=== PATIENT | male | born 1975 | race Caucasian/White ===

== ENCOUNTER → 2023-02-27 14:32 | Outpatient (BNVA) | payer SELFPAY | PROVIDERS: Family Provider Family Medicine; Visit Provider Registered Nurse Neonatal Intensive Care | DX: R39.9 Unspecified symptoms and signs involving the genitourinary system (principal); R73.9 Hyperglycemia, unspecified; H53.9 Unspecified visual disturbance | CPT/HCPCS: 80053; 81000; 82962; 83036; 85007; 85027 ==

== ENCOUNTER 2023-03-07 22:44 | Emergency (ER) | payer SELFPAY ==
[2023-03-07 22:49] VITALS: BP 167/113; PULSE 102; RESP 16; TEMP 36.8; O2SAT 97; BMI 36.2
[2023-03-07 22:54] VITALS: BP 104/58; PULSE 101; RESP 20; O2SAT 93
[2023-03-07 23:02] LABS: Glucose Point of Care 497 mg/dL (70-110)
--- NOTE | 2023-03-07 23:06 | ED_ITS ---
HPI - General Adult General: Chief complaint: General Medical Stated complaint: Cant Sleep\Peeing\No Solid Food\Lossing weight\ Time Seen by Provider: 03/07/23 22:48 Source: patient Mode of arrival: ambulatory Limitations: no limitations History of Present Illness: 47-year-old male states he was diagnosed as a diabetic this week he states that his blood sugar was extremely high at the office visit he started metformin and glipizide he states that since then he just has not felt right he states he has been urinating a lot been extremely thirsty having a hard time sleeping. He states he feels like he is fatigued as well. Denies any pain anywhere denies any vomiting or diarrhea denies any fever or cough. Associated symptoms: Reports nausea; Deny chest pain, dyspnea, headache(s), rash or vomiting Review of Systems Const: Denies: fever(s) or chills Eyes: Denies: blurry vision or eye discomfort ENMT: Denies: throat pain or dental pain Card: Denies: chest pain Resp: Denies: dyspnea GI: Reports: nausea; Denies: abdominal pain, vomiting or diarrhea : Reports: urinary frequency; Denies: dysuria Musc: Denies: neck pain or back pain Skin/Breast: Denies: rash Neuro: Denies: headache(s) Psych: Denies: depression Samir/Lymph: Denies: easy bruising All/Imm: Denies: urticaria PFSH ED PFSH: Medical History Depression Family History (Updated 03/04/23 @ 14:51 by Serena Rivera LPN) Grandmother No problems noted. 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 Special tammy needs: No Agree to transfusion: Yes Physical Exam Const: COMMON NORMALS: no acute distress, patient oriented x3 and healthy appearing HENMT: COMMON NORMALS: normocephalic and atraumatic HEAD & SCALP: normocephalic and atraumatic Eye: COMMON NORMALS: Equal, round and reactive pupils present and EOMs intact bilaterally PUPIL: Yes Equal, round and reactive pupils present Neck/C-Spine: COMMON NORMALS: full ROM and supple Chest: COMMONS NORMALS: normal inspection of the chest and normal palpation of entire chest wall Resp: COMMON NORMALS: normal respiratory effort, No retractions, No use of accessory muscles and clear to auscultation bilaterally AUSCULTATION: clear to auscultation bilaterally Cardio: COMMON NORMALS: regular rate, regular rhythm and No murmurs present (Cardio) RATE: regular rate RHYTHM: regular rhythm GI: COMMON NORMALS: Normal to inspection, nondistended, normoactive bowel sounds present, Soft to palpation, non-tender and no masses PALPATION: Yes Soft to palpation Extremity: COMMON NORMALS: normal to inspection and full ROM Neuro: COMMON NORMALS: patient oriented x3, moves all extremities and no focal motor deficits Psych: COMMON NORMALS: mental status grossly normal, Normal thought process present and cooperative THOUGHT PROCESS: Normal thought process present Skin: COMMON NORMALS: no rashes or lesions noted and no wounds GENERAL SKIN EXAM: no rashes or lesions noted Course Vital Signs: Vital signs: Vital Signs Temperature 98.2 F 03/07/23 22:49 Pulse Rate 86 03/08/23 00:24 Respiratory Rate 18 03/08/23 01:30 Blood Pressure 168/93 03/08/23 01:30 Pulse Oximetry 94 03/08/23 01:30 Oxygen Delivery Me thod Room Air 03/07/23 22:49 MDM - General Adult Medical Decision Making Patient presents here with hyperglycemia likely causing his symptoms he is not in DKA blood work here is normal he feels improved after fluids and insulin his blood sugar now is 325 I feel he is stable for discharge he is to continue his meds follow-up with his PCP and 3 to 5 days and return if worsening he understands agrees to plan. Medical Records I reviewed the patient's medical records. Lab Data I reviewed the patient's lab results. 03/07/23 23:01 03/08/23 01:15 Laboratory Results WBC 12.3 10^3/uL (4.0-10.0) H 03/07/23 23:01 RBC 6.66 10^6/uL (4.1-5.3) H 03/07/23 23:01 Hgb 19.3 g/dL (11.7-16.6) H 03/07/23 23:01 Hct 56.6 % (42.0-52.0) H 03/07/23 23:01 MCV 85.0 fl (80-94) 03/07/23 23: MCH 29.0 pg (28.0-34.0) 03/07/23 23: MCHC 34.1 g/dL (30.0-36.0) 03/07/23 23: RDW 12.7 % (12.1-15.1) 03/07/23 23: Plt Count 213 10^3/cmm (130-400) 03/07/23 23: MPV 11.7 fL (7.4-10.4) H 03/07/23 23:01 Neut % (Auto) 69.1 % 03/07/23 23: Lymph % (Auto) 22.9 % 03/07/23 23: [place] % (Auto) 6.7 % 03/07/23 23: Eos % (Auto) 0.4 % 03/07/23 23: Baso % (Auto) 0.4 % 03/07/23 23: Neut # (Auto) 8.48 10^3/uL (1.8-7.7) H 03/07/23 23:01 Lymph # (Auto) 2.8 10^3/uL (0.8-4.8) 03/07/23 23: [place] # (Auto) 0.8 10^3/uL (0.2-0.9) 03/07/23 23:01 Eos # (Auto) 0.1 10^3/uL (0.0-0.8) 03/07/23 23: Baso # (Auto) 0.1 10^3/uL (0.0-0.1) 03/07/23 23: Nucleated RBC % (auto) 0 % 03/07/23 23: Nucleated RBCs # 0.0 /100WBC 03/07/23 23: Specimen Type Arterial 03/08/23 00:20 Sample Site Radial, left 03/08/23 00:20 ABG pH 7.45 (7.35-7.45) 03/08/23 00:20 ABG pCO2 33.8 mmHg (35-45) L 03/08/23 00:20 ABG pO2 68.6 mmHg (80.0-100.0) L 03/08/23 00:20 ABG HCO3 23.5 mmol/L (22-26) 03/08/23 00:20 ABG Base Excess 0.3 mmol/L (-2.0-2.0) 03/08/23 00:20 Venu Test Pos 03/08/23 00:20 Hematocrit 55.8 % (42-52) H 03/08/23 00:20 O2 Delivery Device None 03/08/23 00:20 Insurance Administrative Assistant ID [email or web address] 03/08/23 00:20 Sodium 133 mmol/L (136-145) L 03/08/23 01:15 Potassium 3.3 mmol/L (3.5-5.1) L 03/08/23 01:15 Chloride 96 mmol/L (98-107) L 03/08/23 01:15 Carbon Dioxide 21 mmol/L (22-29) L 03/08/23 01:15 Anion Gap 19.3 (5-19) H 03/08/23 01:15 BUN 11 mg/dL (6-20) 03/08/23 01:15 Creatinine 0.9 mg/dL (0.7-1.2) 03/08/23 01:15 GFR Calculation 91.3 mL/min (90-130) 03/08/23 01:15 Glucose 402 mg/dL (65-115) H 03/08/23 01:15 POC Glucose 404 mg/dL (70-110) H 03/08/23 01:04 Calculated Osmolality 292 mOsm/kg (285-295) 03/08/23 01:15 Calcium 8.5 mg/dL (8.5-10.5) 03/08/23 01:15 Total Bilirubin 1.2 mg/dL (0.15-1.2) 03/07/23 23:01 AST 39 U/L (0-40) 03/07/23 23:01 ALT 67 U/L (0-41) H 03/07/23 23:01 Alkaline Phosphatase 238 U/L (40-130) H 03/07/23 23:01 Total Protein 8.9 g/dL (6.6-8.7) H 03/07/23 23: Albumin 4.4 g/dL (3.5-5.2) 03/07/23 23: Globulin 4.5 g/dL (1.3-4.6) 03/07/23 23:01 Lipase 40 U/L (13-60) 03/07/23 23:01 Urine Color Yellow (Yellow) 03/08/23 00:31 Urine Appearance Sl hazy (CLEAR) A 03/08/23 00:31 Urine pH 5 (5-7) 03/08/23 00:31 Ur Specific [place] 1.015 (1.005-1.030) 03/08/23 00:31 Urine Protein Neg (Negative) 03/08/23 00:31 Urine Glucose (UA) 4+ (Normal) H 03/08/23 00:31 Urine Ketones 2+ (Negative) H 03/08/23 00:31 Urine Blood Neg (Negative) 03/08/23 00: Urine Nitrate Negative (Negative) 03/08/23 00:31 Urine Bilirubin Neg (Negative) 03/08/23 00:31 Urine Urobilinogen Neg mg/dL (Negative) 03/08/23 00:31 Ur Leukocyte Esterase Trace (Negative) H 03/08/23 00:31 Urine RBC None /hpf (0-2) 03/08/23 00:31 Urine WBC 0-4 /hpf (0-5) H 03/08/23 00:31 Ur Squamous Epith Cells 0-4 /hpf (0-5) H 03/08/23 00:31 Amorphous Sediment Not Reportable 03/08/23 00:31 Urine Bacteria 1+ /hpf (NONE) H 03/08/23 00:31 Urine Mucus 1+ /hpf 03/08/23 00:31 Urine Yeast 2+ /hpf H 03/08/23 00:31 EKG Data EKG 1: I personally reviewed and interpreted this EKG as follows: EKG interpretation date: 03/07/23 EKG interpretation time: 23:28 Interpretation: nsr hr [address] or t wave abonramlities qrs 114 qtc 432 Discharge Plan Discharge Patient Disposition: Home Clinical Impression: Hyperglycemia Condition: Stable Prescriptions: New ondansetron 4 mg tablet,disintegrating 4 mg PO Q6H PRN (Reason: nausea and vomiting) Qty: 14 0RF No Action nystatin 100,000 unit/gram cream 1 applic topical TID 7 Days Qty: 30 0RF metformin 500 mg tablet extended release 24hr 500 mg PO BID Qty: 60 0RF glipizide 5 mg tablet 5 mg PO DAILY Qty: 30 0RF fluoxetine 20 mg tablet 20 mg PO DAILY Qty: 30 0RF Discharge Orders: Discharge ED (Routine); Ordered 03/08/23 Ordered By: Gi Castellon Referrals: Viktor Samaniego MD [Primary Care Provider] - 1-3 days Discharge Diet: Advance as tolerated Discharge Activity: Resume usual activity Patient Instructions: Diabetic Hyperglycemia (ED) Stand Alone Forms: Work/School Release Coding Level of Care Code ED Babbitt Spinner for Meliton Lopez
--- NOTE | 2023-03-07 23:08 | ECG_ITS ---
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 Measurements Intervals Pray Rate: 96 P: 30 SD: 148 QRS: -18 QRSD: 114 T: 18 QT: 378 QTc: 480 Interpretive Statements SINUS RHYTHM MODERATE INTRAVENTRICULAR CONDUCTION DELAY [110+ ms QRS DURATION] NONSPECIFIC ST & T-WAVE ABNORMALITY No previous ECG available for comparison Electronically Signed On 03-08-2023 11:58:04 CDT by Myles Ponce M.D. [id number]
[2023-03-07] MEDS: insulin regular-human 100 units/1 mL 10 UNIT IVP (23:09)
[2023-03-07 23:10] LABS: Basophils # 0.1 10^3/uL (0.0-0.1); Basophils % 0.4 %; Eosinophils # 0.1 10^3/uL (0.0-0.8); Eosinophils % 0.4 %; Hematocrit 56.6 % (42.0-52.0); Hemoglobin 19.3 g/dL (11.7-16.6); Lymphocytes # 2.8 10^3/uL (0.8-4.8); Lymphocytes % 22.9 %; Mean Corpuscular HGB Conc 34.1 g/dL (30.0-36.0); Mean Platelet Volume 11.7 fL (7.4-10.4); Monocytes # 0.8 10^3/uL (0.2-0.9); Monocytes % 6.7 %; Neutrophils # 8.48 10^3/uL (1.8-7.7); Neutrophils % 69.1 %; Nucleated Red Blood Cells % 0 %; Platelet Count 213 10^3/cmm (130-400); Red Blood Count 6.66 10^6/uL (4.1-5.3); Red Cell Distribution Width 12.7 % (12.1-15.1); White Blood Count 12.3 10^3/uL (4.0-10.0)
[2023-03-07] MEDS: sodium chloride 0.9% 1,000 ML 999 ML IV (23:10)
[2023-03-07 23:28] LABS: Alanine Aminotransferase 67 U/L (0-41); Albumin Level 4.4 g/dL (3.5-5.2); Alkaline Phosphatase 238 U/L (40-130); Anion Gap 22.7 (5-19); Aspartate Amino Transferase 39 U/L (0-40); Blood Urea Nitrogen 13 mg/dL (6-20); Calcium 9.3 mg/dL (8.5-10.5); Carbon Dioxide 24 mmol/L (22-29); Chloride 92 mmol/L (98-107); Globulin 4.5 g/dL (1.3-4.6); Glomerular Filtration Rate 72.4 mL/min (90-130); Lipase 40 U/L (13-60); Osmolality Calculated 303 mOsm/kg (285-295); Potassium 3.7 mmol/L (3.5-5.1); Sodium 135 mmol/L (136-145); Total Bilirubin 1.2 mg/dL (0.15-1.2); Total Protein 8.9 g/dL (6.6-8.7)
[2023-03-07 23:31] LABS: Glucose 518 mg/dL (65-115)
[2023-03-08 00:24] VITALS: BP 178/105; PULSE 86; RESP 16; O2SAT 93
[2023-03-08] MEDS: insulin regular-human 100 units/1 mL 10 UNIT IVP (00:24)
[2023-03-08 00:26] LABS: ABG PCO2 33.8 mmHg (35-45); ABG PH Result 7.45 (7.35-7.45); Arterial Blood Gas Hematocrit 55.8 % (42-52); Base Excess ABG 0.3 mmol/L (-2.0-2.0); Blood Gas Allen Test Pos; Blood Gas Sample Type Arterial; HCO3 ABG 23.5 mmol/L (22-26); PO2 ABG 68.6 mmHg (80.0-100.0)
[2023-03-08] MEDS: sodium chloride 0.9% 1,000 ML 999 ML IV ×2 (00:26→01:13)
[2023-03-08 00:31] LABS: Blood Gas Sample Site Radial, left
[2023-03-08 00:50] LABS: Add Urine Microscopic? YES; Bilirubin Urine Neg (Negative); Blood Urine Neg (Negative); Glucose Urine UA 4+ (Normal); Ketones Urine 2+ (Negative); Leukocyte Esterase Urine Trace (Negative); Nitrate Urine Negative (Negative); Protein Urine Neg (Negative); Specific Gravity, Urine 1.015 (1.005-1.030); Urine Appearance SL Hazy (CLEAR); Urine Color Yellow (Yellow); Urobilinogen Urine Neg (Negative); pH Urine 5 (5-7)
[2023-03-08 00:51] LABS: Add Urine Culture? Yes; Bacteria Urine 1+ /hpf; Mucus Urine 1+ /hpf; Squamous Epithelial Cell Urine 0-4 /hpf (0-5); WBC Urine 0-4 /hpf (0-5)
[2023-03-08 01:08] LABS: Glucose Point of Care 404 mg/dL (70-110)
[2023-03-08] MEDS: insulin regular-human 100 units/1 mL 7 UNIT IVP (01:13)
[2023-03-08 01:30] VITALS: BP 168/93; RESP 18; O2SAT 94
[2023-03-08 01:34] LABS: Anion Gap 19.3 (5-19); Blood Urea Nitrogen 11 mg/dL (6-20); Calcium 8.5 mg/dL (8.5-10.5); Carbon Dioxide 21 mmol/L (22-29); Chloride 96 mmol/L (98-107); Creatinine Clr Calc Pharmacy 151.4675; Glomerular Filtration Rate 91.3 mL/min (90-130); Glucose 402 mg/dL (65-115); Osmolality Calculated 292 mOsm/kg (285-295); Potassium 3.3 mmol/L (3.5-5.1); Sodium 133 mmol/L (136-145)
[2023-03-08 02:04] VITALS: BP 170/70; PULSE 90; RESP 18; O2SAT 92
[2023-03-08 02:07] LABS: Glucose Point of Care 325 mg/dL (70-110)
[2023-03-08] MEDS: ondansetron 2 mg/ML SDV 2 mL 4 MG IVP (02:10)
[2023-03-08 16:37] LABS: Glucose Point of Care 502 mg/dL (70-110)
== END 2023-03-08 02:18 | disposition home or self-care (01) ==
PROVIDERS: Emergency Provider Emergency Medicine; PCP Family Medicine
DX: E11.65 Type 2 diabetes mellitus with hyperglycemia (principal); Z79.84 Long term (current) use of oral hypoglycemic drugs
CPT/HCPCS: 36415; 36416; 36600; 80048; 80053; 81001; 82803; 82962; 83690; 85025; 87086; 93005; 96361; 96374; 96375; 96376; 99285; J1815; J2405; J7030

== ENCOUNTER 2023-03-11 19:58 | Emergency (ER) | payer SELFPAY ==
[2023-03-11 20:06] VITALS: BP 180/116; PULSE 89; RESP 17; TEMP 36.7; O2SAT 96; BMI 37.7
[2023-03-11 20:19] LABS: Glucose Point of Care > 600 mg/dL (70-110)
[2023-03-11 20:55] LABS: ABG PCO2 34.8 mmHg (35-45); ABG PH Result 7.42 (7.35-7.45); Base Excess ABG -0.9 mmol/L (-2.0-2.0); Blood Gas Allen Test Pos; Blood Gas Sample Site Radial, right; Blood Gas Sample Type Arterial; HCO3 ABG 22.8 mmol/L (22-26); Oxygen Device ROOM AIR
[2023-03-11 21:56] LABS: Basophils % 0.4 %; Eosinophils # 0.1 10^3/uL (0.0-0.8); Eosinophils % 0.8 %; Hematocrit 49.8 % (42.0-52.0); Hemoglobin 17.2 g/dL (11.7-16.6); Lymphocytes % 31.6 %; Mean Corpuscular HGB Conc 34.5 g/dL (30.0-36.0); Mean Corpuscular Hemoglobin 29.6 pg (28.0-34.0); Mean Corpuscular Volume 85.6 fl (80-94); Monocytes # 0.7 10^3/uL (0.2-0.9); Neutrophils # 5.68 10^3/uL (1.8-7.7); Neutrophils % 59.7 %; Nucleated Red Blood Cells % 0 %; Platelet Count 160 10^3/cmm (130-400); Red Blood Count 5.82 10^6/uL (4.1-5.3); White Blood Count 9.5 10^3/uL (4.0-10.0)
--- NOTE | 2023-03-11 22:12 | W.ED.RECABL ---
HPI - Recheck/Abnormal Lab/Rx General: Chief Complaint: Recheck/Abnormal Lab/Rx Stated Complaint: Diabetic Stuff Time Seen by Provider: 03/11/23 22:07 Source: patient Mode of arrival: ambulatory Limitations: no limitations History of Present Illness: 47-year-old male who was recently diagnosed with diabetes little over a week ago he has been having a hard time controlling his sugars I had seen him last week for hyperglycemia he states that he has continued to feel fatigued he states last night he had multiple episodes of nausea vomiting went and saw his PCP today and his sugar was over 600 sent to the ER his sugar is over 600 here as well. He states his vomiting is improved but he still feels very fatigued denies any chest pain he states he has had a decrease in appetite. Review of Systems Const: Reports: change in appetite and fatigue; Denies: fever(s) or chills Eyes: Reports: blurry vision; Denies: eye discomfort ENMT: Denies: throat pain or dental pain Card: Denies: chest pain Resp: Denies: dyspnea GI: Reports: nausea; Denies: abdominal pain, vomiting or diarrhea : Reports: urinary frequency; Denies: dysuria Musc: Denies: neck pain or back pain Skin/Breast: Denies: rash Neuro: Denies: headache(s) PFSH ED PFSH: Medical History Depression Family History Grandmother No problems noted. 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 Special tammy needs: No Agree to transfusion: Yes Physical Exam Const: COMMON NORMALS: patient oriented x3 HENMT: COMMON NORMALS: normocephalic and atraumatic HEAD & SCALP: normocephalic and atraumatic Eye: COMMON NORMALS: conjunctivae normal CONJUNCTIVA: Yes conjunctivae normal Neck/C-Spine: COMMON NORMALS: full ROM and supple Chest: COMMONS NORMALS: normal inspection of the chest and normal palpation of entire chest wall Resp: COMMON NORMALS: normal respiratory effort, No retractions, No use of accessory muscles and clear to auscultation bilaterally AUSCULTATION: clear to auscultation bilaterally Cardio: COMMON NORMALS: regular rate, regular rhythm and No murmurs present (Cardio) RATE: regular rate RHYTHM: regular rhythm GI: COMMON NORMALS: Normal to inspection, nondistended, normoactive bowel sounds present, Soft to palpation, non-tender and no masses PALPATION: Yes Soft to palpation Extremity: COMMON NORMALS: normal to inspection and full ROM Neuro: COMMON NORMALS: patient oriented x3, moves all extremities and no focal motor deficits Psych: COMMON NORMALS: mental status grossly normal, Normal thought process present and cooperative THOUGHT PROCESS: Normal thought process present Skin: COMMON NORMALS: no rashes or lesions noted and no wounds GENERAL SKIN EXAM: no rashes or lesions noted Course Vital Signs: Vital signs: Vital Signs Temperature 98.1 F 03/11/23 20:06 Pulse Rate 86 03/11/23 23:35 Respiratory Rate 16 03/11/23 23:35 Blood Pressure 175/98 03/11/23 23:35 Pulse Oximetry 94 03/11/23 23:35 Oxygen Delivery Me thod Room Air 03/11/23 20:06 MDM - Recheck/Abnormal Lab/Rx Medical Decision Making Patient presents here with hyperglycemia blood sugar was 600s he is also diabetic he is not in DKA his blood sugars now 334 did consult the hospitalist Dr. Dawn who is seen patient he does not require admission this time we will start him on Lantus to go along with his glipizide metformin he is to follow-up with PCP and return if worsening he understands agrees to plan. Medical Records I reviewed the patient's medical records. Lab Data I reviewed the patient's lab results. 03/11/23 21:32 03/11/23 21:32 Laboratory Results WBC 9.5 10^3/uL (4.0-10.0) 03/11/23 21:32 RBC 5.82 10^6/uL (4.1-5.3) H 03/11/23 21:32 Hgb 17.2 g/dL (11.7-16.6) H 03/11/23 21: Hct 49.8 % (42.0-52.0) 03/11/23 21: MCV 85.6 fl (80-94) 03/11/23 21: MCH 29.6 pg (28.0-34.0) 03/11/23 21: MCHC 34.5 g/dL (30.0-36.0) 03/11/23: RDW 13.0 % (12.1-15.1) 03/11/23 21: Plt Count 160 10^3/cmm (130-400) 03/11/23 21: MPV 12.0 fL (7.4-10.4) H 03/11/23 21: Neut % (Auto) 59.7 % 03/11/23 21: Lymph % (Auto) 31.6 % 03/11/23 21: [place] % (Auto) 7.0 % 03/11/23 21: Eos % (Auto) 0.8 % 03/11/23 21: Baso % (Auto) 0.4 % 03/11/23 21: Neut # (Auto) 5.68 10^3/uL (1.8-7.7) 03/11/23 21: Lymph # (Auto) 3.0 10^3/uL (0.8-4.8) 03/11/23 21: [place] # (Auto) 0.7 10^3/uL (0.2-0.9) 03/11/23 21: Eos # (Auto) 0.1 10^3/uL (0.0-0.8) 03/11/23 21: Baso # (Auto) 0.0 10^3/uL (0.0-0.1) 03/11/23 21: Nucleated RBC % (auto) 0 % 03/11/23: Nucleated RBCs # 0.0 /100WBC 03/11/23 21: Specimen Type Arterial 03/11/23 20:48 Sample Site Radial, right 03/11/23 20:48 ABG pH 7.42 (7.35-7.45) 03/11/23 20:48 ABG pCO2 34.8 mmHg (35-45) L 03/11/23 20:48 ABG pO2 74.0 mmHg (80.0-100.0) L 03/11/23 20:48 ABG HCO3 22.8 mmol/L (22-26) 03/11/23 20:48 ABG Base Excess -0.9 mmol/L (-2.0-2.0) 03/11/23 20:48 Venu Test Pos 03/11/23 20:48 Hematocrit 53.0 % (42-52) H 03/11/23 20:48 O2 Delivery Device Room air 03/11/23 20:48 Appeals Specialist ID [email or web address] 03/11/23 20:48 Sodium 133 mmol/L (136-145) L 03/11/23 21:32 Potassium 3.9 mmol/L (3.5-5.1) 03/11/23 21:32 Chloride 96 mmol/L (98-107) L 03/11/23 21:32 Carbon Dioxide 22 mmol/L (22-29) 03/11/23 21:32 Anion Gap 18.9 (5-19) 03/11/23 21:32 BUN 9 mg/dL (6-20) 03/11/23 21:32 Creatinine 0.9 mg/dL (0.7-1.2) 03/11/23 21:32 GFR Calculation 91.3 mL/min (90-130) 03/11/23 21:32 Glucose 546 mg/dL (65-115) H* 03/11/23 21:32 POC Glucose 334 mg/dL (70-110) H 03/11/23 23:03 Calculated Osmolality 300 mOsm/kg (285-295) H 03/11/23 21:32 Calcium 9.5 mg/dL (8.5-10.5) 03/11/23 21:32 Total Bilirubin 0.5 mg/dL (0.15-1.2) 03/11/23 21:32 AST 48 U/L (0-40) H 03/11/23 21:32 ALT 67 U/L (0-41) H 03/11/23 21:32 Alkaline Phosphatase 251 U/L (40-130) H 03/11/23 21:32 Total Protein 7.5 g/dL (6.6-8.7) 03/11/23 21:32 Albumin 3.7 g/dL (3.5-5.2) 03/11/23 21:32 Globulin 3.8 g/dL (1.3-4.6) 03/11/23 21:32 Lipase 103 U/L (13-60) H 03/11/23 21:32 Serum Ketones Negative (Negative) 03/11/23 21:32 Discharge Plan Discharge Patient Disposition: Home Clinical Impression: Hyperglycemia, Diabetes mellitus Condition: Stable Prescriptions: New Lantus Solostar U-100 Insulin 100 unit/mL (3 mL) insulin pen 13 unit SUBCUT DAILY 30 Days Qty: 15 1RF (DME) BD Ultra-Fine Short Pen Needle 31 gauge x 5/16 needle See Rx Instructions .Route Qty: 50 0RF Rx Instructions: As directed (DME) Accu-Chek Guide Glucose Meter Misc See Rx Instructions .Route Qty: 1 0RF Rx Instructions: As directed No Action nystatin 100,000 unit/gram cream 1 applic topical TID 7 Days Qty: 30 0RF glipizide 10 mg tablet 10 mg PO DAILY Qty: 30 0RF metformin 500 mg tablet extended release 24hr 1,000 mg PO BID Qty: 120 0RF fluoxetine 20 mg tablet 20 mg PO DAILY Qty: 30 0RF ondansetron 4 mg tablet,disintegrating 4 mg PO Q6H PRN (Reason: nausea and vomiting) Qty: 14 0RF Discharge Orders: Discharge ED (Routine); Ordered 03/11/23 Ordered By: Gi Castellon Referrals: Viktor Samaniego MD [Primary Care Provider] - 1-3 days Discharge Diet: Advance as tolerated Discharge Activity: Resume usual activity Patient Instructions: Diabetic Hyperglycemia (ED) Coding Level of Care Code ED Graphic Illustrator for Chg Jessica
[2023-03-11 22:15] LABS: Ketone (Acetest) Serum Negative (Negative)
[2023-03-11 22:18] LABS: Alanine Aminotransferase 67 U/L (0-41); Albumin Level 3.7 g/dL (3.5-5.2); Alkaline Phosphatase 251 U/L (40-130); Anion Gap 18.9 (5-19); Aspartate Amino Transferase 48 U/L (0-40); Blood Urea Nitrogen 9 mg/dL (6-20); Calcium 9.5 mg/dL (8.5-10.5); Carbon Dioxide 22 mmol/L (22-29); Chloride 96 mmol/L (98-107); Globulin 3.8 g/dL (1.3-4.6); Glomerular Filtration Rate 91.3 mL/min (90-130); Lipase 103 U/L (13-60); Osmolality Calculated 300 mOsm/kg (285-295); Potassium 3.9 mmol/L (3.5-5.1); Sodium 133 mmol/L (136-145); Total Bilirubin 0.5 mg/dL (0.15-1.2); Total Protein 7.5 g/dL (6.6-8.7)
[2023-03-11] MEDS: ondansetron 2 mg/ML SDV 2 mL 4 MG IVP (22:23)
[2023-03-11] MEDS: insulin regular-human 100 units/1 mL 10 UNIT IVP (22:23)
[2023-03-11 22:25] LABS: Glucose 546 mg/dL (65-115)
[2023-03-11] MEDS: sodium chloride 0.9% 1,000 ML 999 ML IV (22:27)
[2023-03-11 23:06] LABS: Glucose Point of Care 334 mg/dL (70-110)
[2023-03-11 23:35] VITALS: BP 175/98; PULSE 86; RESP 16; O2SAT 94
--- NOTE | 2023-03-11 23:40 | P.CONIM_ITS ---
Providers/Reason For Consult Consulting Physician/Specialty*: Bárbara Crespo MD/ Hospitalist Reason for Consult*: uncontrolled DM Requesting Physician: Gi Castellon MD Primary Care Provider: Viktor Samaniego MD History of Present Illness History of Present Illness Mateus Boggs is a 47 year old male recently diagnosed with type 2 diabetes in the last 2 weeks, started on metformin and glipizide. His last HbA1c was at 9. Patient has been tolerating the combination of glipizide and metformin, though he does report intermittent dry mouth, blurring of vision, multiple ep isodes of emesis. He presented to Dr. Samaniego's office today for his 2-week follow-up after starting medications and his blood sugar was noted to be greater than 600 therefore he was sent over to the emergency room. Upon initial arrival his blood sugar range between 500-600. He had no other signs of DKA. He said that he had been vomiting a lot last night however this is currently resolved. He had some blurred vision initially upon arrival which has also resolved as his blood sugar has trending down to 334. He did receive 10 units of regular insulin IV push to bring his blood sugar down from greater than 500-3 34. He feels symptomatically improved with these numbers. Hospitalist service is consulted to assess for possible addition of insulin to his regimen. Patient states that addition of insulin was discussed at his primary care physician's office, however he has been hesitant to use the same. 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 He is also concerned that the addition of insulin may be permanent for him. Review of Systems General: Reports: 10 or more systems reviewed and unremarkable except in HPI and below Const: Denies: fever(s), chills or body aches Eyes: Denies: change in vision, blurry vision or photophobia ENMT: Reports: hoarseness; Denies: throat pain, enlarged tonsils, odynophagia or nasal congestion Card: Denies: chest pain, palpitations, irregular heart rhythm, edema, swelling of feet/ankles, lightheadedness, pre-syncope, dyspnea on exertion or orthopnea Resp: Denies: dyspnea, productive cough, non-productive cough, wheezing, stridor, pain on inspiration, change in phlegm color, hemoptysis or chest congestion GI: Denies: abdominal pain, nausea, vomiting, hematemesis, coffee ground emesis, dysphagia, heartburn, diarrhea, constipation, GI cramping, change in stool character, hematochezia or melena : Denies: flank pain, dysuria, urinary frequency, urinary urgency, urinary hesitancy or hematuria Musc: Denies: neck pain, back pain, extremity pain, joint swelling, joint warmth or deformity Neuro: Denies: headache(s), numbness in extremities, weakness in extremities, sensory changes, difficulty walking, frequent falls, dizziness, vertigo, behavioral changes, Slurred speech present or seizure-like activity Psych: Denies: anxiety, depression, suicidal ideation or homicidal ideation Endo: Denies: polyuria, polydipsia, tired all the time, cold intolerance or hot flashes Samir/Lymph: Denies: easy bruising or easy bleeding Medications/Allergies Home Medications Medication Instructions Recorded Confirmed Last Taken Type nystatin 100,000 unit/gram topical 1 applic topical TID 7 days #30 02/27/23 03/11/23 Unknown Rx cream grams fluoxetine 20 mg tablet 20 mg PO DAILY #30 tabs 03/04/23 03/11/23 Unknown Rx ondansetron 4 mg disintegrating 4 mg PO Q6H PRN nausea and 03/08/23 03/11/23 Unknown Rx tablet vomiting #14 tabs blood-glucose meter (Accu-Chek #1 ea 03/11/23 Unknown Rx Guide Glucose Meter) glipizide 10 mg tablet 10 mg PO DAILY #30 tabs 03/11/23 03/11/23 Unknown Rx insulin glargine 100 unit/mL (3 13 unit (0.13 mL) SUBCUT DAILY 30 03/11/23 Unknown Rx mL) subcutaneous pen (Lantus days #15 mL Solostar U-100 Insulin) metformin 500 mg tablet,extended 1,000 mg PO BID #120 tabs 03/11/23 03/11/23 Unknown Rx release 24hr pen needle, diabetic 31 gauge x #50 ea 03/11/23 Unknown Rx 5/16 (BD Ultra-Fine Short Pen Needle) Allergies Allergy/AdvReac Type Severity Reaction Status Date / Time iodine Allergy ALGY-Anaphy Verified 03/11/23 18:53 laxis shellfish derived Allergy ALGY-Anaphy Verified 03/11/23 18:53 laxis PFSH Acute PFSH: Medical History Depression Family History Grandmother No problems noted. 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 Special tammy needs: No Agree to transfusion: Yes Vitals/I&O/Wt Last Vital Signs Temp 98.1 F 03/11/23 20:06 Pulse 86 03/11/23 23:35 Resp 16 03/11/23 23:35 BP 175/98 03/11/23 23:35 Pulse Ox 94 03/11/23 23:35 O2 Del Method Room Air 03/11/23 20:06 Weight last 48 hrs Weight 136.985 kg Physical Exam Narrative: General: No acute distress, AO x3 HEENT: PERRLA, pupils bilaterally equal and reactive, pallors not present Chest: Normal vesicular breath sounds, no added sounds, equal good air entry bilaterally CVS: S1-S2 regular, no murmurs, no tachycardia, no gallops, no rubs Abdomen: Soft, nontender, no organomegaly, bowel sounds present Neuro: No focal deficits, no facial deformity, AO x3, power 5/5 in all limbs Data 03/11/23 21:32 03/11/23 21:32 A&P Assessment and plan (1) Hyperglycemia: (2) Diabetes mellitus: Plan Patient with recently diagnosed type 2 diabetes mellitus, started on glipizide and metformin. No reported side effects from the medications, reports compliance. States that he is also making lifestyle modifications with his diet. Patient is concerned because he continues to have blood sugar 500-600 range with symptoms of intermittent blurred vision, dry mouth, multiple episodes of emesis. He was experiencing these symptoms last night, blood sugar checked today at PCPs office was greater than 600. Last HbA1c at 9 Discussed with him the option of adding long-acting insulin to his regimen to better control his blood sugar. Extensively discussed pathophysiology of diabetes, rationale for checking HbA1c, indication to use insulin with an HbA1c of 9 and uncontrolled blood sugar ranging 600. Discussed osmotic symptoms of hyperglycemia. Discussed extensively types of insulin including short-acting long-acting, availability as pens etc. After discussing all risks and benefits, at this time patient has agreed to addition of once daily long-acting insulin to his regimen. Will start him on insulin Lantus 13 units daily, prescribed as insulin pen due to ease of administration and anticipated better compliance by this method. Also discussed with him that he needs to have a glucometer to assess response to insulin over the next few days and to monitor for hypoglycemia. Since he is insulin naive and has had good response to 10 units of insulin given in the ER, he is being started at a low dose of 0.1U/Kg/ day in addition to to OHAs, this may need to be titrated up eventually. Discussed signs and symptoms of hypoglycemia, recommneded to keep life savers/glucose tablets on his person at all times. He will be picking up his insulin prescription in the morning. Follow up with PCP in the next 2 weeks. No current signs of DKA/HHS/ dehydration, okay for discharge home once blood sugar improves tonight. Coding Level of Care Code Acute Code for Chg Fwd Moderate MDM includes number and complexity of problems actively addressed during encounter, amount and/or complexity of data reviewed/ordered and described risk of complication, morbidity or mortality of management as documented Diagnoses Hyperglycemia R73.9 Diabetes mellitus E11.9
[2023-03-12] VITALS: BP 164/104; PULSE 87; RESP 16; O2SAT 93
== END 2023-03-12 00:02 | disposition home or self-care (01) ==
PROVIDERS: Emergency Provider Emergency Medicine; PCP Family Medicine
DX: E11.65 Type 2 diabetes mellitus with hyperglycemia (principal); Z79.84 Long term (current) use of oral hypoglycemic drugs
CPT/HCPCS: 36415; 36416; 36600; 80053; 82009; 82803; 82962; 83690; 85025; 96374; 96375; 99284; J1815; J2405; J7030

== ENCOUNTER 2025-04-27 15:46 | Outpatient (CLI) | payer OTHER, SELFPAY ==
--- NOTE | 2025-04-27 15:56 | XRR_ITS ---
PROCEDURE INFORMATION: Exam: XR Chest Exam date and time: 04/27/2025 4:04 PM Age: 49 years old Clinical indication: Cough and shortness of breath; X9 days worsening cough, SOB, crackling in lungs, fatigued TECHNIQUE: Imaging protocol: Radiologic exam of the chest. Views: 2 views. COMPARISON: No relevant prior studies available. FINDINGS: Lungs: Unremarkable. No consolidation. Pleural spaces: Unremarkable. No pleural effusion. No pneumothorax. Heart/Mediastinum: Unremarkable. No cardiomegaly. Bones/joints: Unremarkable. XR/XR chest 2V* [id number] IMPRESSION: No acute findings.
== END 2025-04-27 15:47 | disposition home or self-care (01) ==
PROVIDERS: PCP Nurse Practitioner Family; Visit Provider Nurse Practitioner Family
DX: R05.8 Other specified cough (principal)
CPT/HCPCS: 71046